=== PATIENT | male | born 1990 | race African-American/Black ===

== ENCOUNTER 2016-09-11 14:03 | Emergency (ER) | payer SELFPAY ==
[~2016-09-11] VITALS: Ht 188 cm; Wt 65.8 kg
--- NOTE | 2016-09-11 14:46 | NUR ---
Patient discharged to home in stable conditon. Written and verbal after care instructions given. Patient verbalizes understanding of instructions.PT WALKS IN STEADY GAIT ACCOMPANIED BY SO
== END 2016-09-11 14:51 | disposition home or self-care (01) ==
LOC: ER 14:03
DX: S62.512A Displaced fracture of proximal phalanx of left thumb, initial encounter for closed fracture (principal); F19.10 Other psychoactive substance abuse, uncomplicated; W18.30XA Fall on same level, unspecified, initial encounter; Y99.8 Other external cause status; Y93.89 Activity, other specified; Y92.89 Other specified places as the place of occurrence of the external cause
CPT/HCPCS: 73130; A4663